=== PATIENT | male | born 1985 | race African-American/Black ===

== ENCOUNTER 2023-01-12 15:59 | Emergency (ER) | payer MEDICAID ==
[~2023-01-12] VITALS: Ht 175.3 cm; Wt 68.0 kg
[2023-01-12] MEDS ORDERED: IBUPROFEN 600MG TABLET PO ONE (18:15)
[2023-01-12 19:36] VITALS: BP 125/70
== END 2023-01-12 20:34 | disposition home or self-care (01) ==
LOC: ER 15:59
DX: S82.401A Unspecified fracture of shaft of right fibula, initial encounter for closed fracture (principal); X58.XXXA Exposure to other specified factors, initial encounter; Y93.89 Activity, other specified; Y92.89 Other specified places as the place of occurrence of the external cause; Y99.8 Other external cause status; Z88.0 Allergy status to penicillin
CPT/HCPCS: 73560; 73590; 99284

== ENCOUNTER 2023-03-17 14:41 | Emergency (ER) | payer MEDICAID ==
[~2023-03-17] VITALS: Ht 175.3 cm; Wt 69.5 kg
[2023-03-17 14:50] VITALS: BP 142/87; PULSE 106; RESP 18; TEMP 98.2; O2SAT 98
[2023-03-17] MEDS ORDERED: ERYT1OIN6 LEFTEYE (17:15)
== END 2023-03-17 17:53 | disposition home or self-care (01) ==
LOC: ER 14:41
DX: H10.32 Unspecified acute conjunctivitis, left eye (principal); Z88.0 Allergy status to penicillin
CPT/HCPCS: 99283

== ENCOUNTER 2023-05-23 21:30 | Emergency (ER) | payer MEDICAID, OTHER ==
[~2023-05-23] VITALS: Ht 175.3 cm; Wt 77.0 kg
[~2023-05-23 21:30] MED LIST: ERYT1OIN6 LEFTEYE
[2023-05-23 21:34] VITALS: BP 151/101; PULSE 83; RESP 16; TEMP 99.6; O2SAT 98
[2023-05-23 23:19] LABS: BASOPHILS % 1.2 % (0.0-2.0); EOSINOPHILS % 1.4 % (0.0-5.0); HEMATOCRIT. 43.4 % (42.0-52.0); HEMOGLOBIN. 14.8 g/dL (14.0-18.0); LYMPHOCYTES % 24.7 % (20.0-50.0); MEAN CORPUSCULAR HEMOGLOBIN 30.8 pg (28.0-32.0); MEAN CORPUSCULAR HGB CONC 34.1 g/dL (31.0-37.0); MEAN CORPUSCULAR VOLUME 90.4 fL (80.0-94.0); MEAN PLATELET VOLUME 8.6 fl (7.4-10.4); MONOCYTES % 8.6 % (2.0-8.0); NEUTROPHILS % 64.1 % (40.0-76.0); PLATELET 171 x1000/uL (130-400); RED CELL DISTRIBUTION WIDTH 15.1 % (11.6-14.6); WHITE BLOOD COUNT 5.1 x1000/uL (4.5-11.0)
[2023-05-23 23:29] LABS: CHLORIDE 110 mEq/L (98-107); INDEX HEMOLYSI 3 (1-3); INDEX ICTERIC 1 (1-4); INDEX LIPEMIC 1 (1-3); POTASSIUM 3.7 mEq/L (3.5-5.1); SODIUM 142 mEq/L (136-145)
[2023-05-23 23:36] LABS: ALANINE AMINOTRANSFERASE 37 IU/L (13-61); ALBUMIN 4.3 g/dL (3.4-5.0); ASPARTATE AMINOTRANSFERASE 22 IU/L (15-37); BILIRUBIN TOTAL 0.3 mg/dL (0.1-1.0); CALCIUM 8.5 mg/dL (8.5-10.1); CARBON DIOXIDE 30 mEq/L (21-32); CREATININE 0.8 mg/dL (0.6-1.3); ETHANOL BLOOD 24 mg/dL (<10); GLUCOSE 83 mg/dL (70-105); PROTEIN TOTAL 8.1 g/dL (6.0-8.3); UREA NITROGEN BLOOD 8 mg/dL (7-21)
[2023-05-23 23:38] LABS: CLARITY URINE CLEAR (CLEAR); COLOR URINE YELLOW (YELLOW); GLUCOSE URINE NEGATIVE (NEGATIVE); KETONES URINE NEGATIVE (NEGATIVE); LEUKOCYTE ESTERASE URINE NEGATIVE (NEGATIVE); NITRITE URINE NEGATIVE (NEGATIVE); OCCULT BLOOD URINE NEGATIVE (NEGATIVE); PH URINE 7.5 (4.5-8.0); PROTEIN URINE NEGATIVE (NEGATIVE); SPECIFIC GRAVITY URINE 1.005 (1.005-1.030); UROBILINOGEN URINE 0.2 E.U./dL (0.2-1.0)
[2023-05-23 23:56] LABS: *AMPHETAMINES SCREEN URINE NEGATIVE (NEGATIVE); *BARBITURATES SCREEN URINE NEGATIVE (NEGATIVE); *BENZODIAZEPINES SCREEN URINE NEGATIVE (NEGATIVE); *COCAINE SCREEN URINE NEGATIVE (NEGATIVE); CANNABINOID URINE SCREEN NEGATIVE (NEGATIVE); ECSTASY MDMA SCREEN URINE NEGATIVE (NEGATIVE); METHADONE URINE SCREEN NEGATIVE (NEGATIVE); OPIATES URINE SCREEN NEGATIVE (NEGATIVE); PHENCYCLIDINE URINE SCREEN PRESUMTIVE POSITIVE (NEGATIVE)
== END 2023-05-24 00:21 | disposition home or self-care (01) ==
LOC: ER 21:30
DX: F19.10 Other psychoactive substance abuse, uncomplicated (principal); F12.10 Cannabis abuse, uncomplicated
CPT/HCPCS: 36415; 71045; 80053; 80305; 80320; 81003; 85025; 99284; G0480